=== PATIENT | male | born 1975 | race Caucasian/White ===

== ENCOUNTER 2021-01-03 11:27 | Outpatient (CLI) | payer OTHER | END 2021-01-03 11:28 | disposition home or self-care (01) | LOC: CSHRAD 11:27 | PROVIDERS: ATTEND Family Medicine | DX: M47.816 Spondylosis without myelopathy or radiculopathy, lumbar region (principal) | CPT/HCPCS: 72100 ==

== ENCOUNTER 2022-03-20 10:48 | Emergency (ER) | payer OTHER ==
[2022-03-20] MEDS ORDERED: Triple Antibiotic Oint 1 GM Packet ONE (13:26)
== END 2022-03-20 13:27 | disposition home or self-care (01) ==
LOC: CSHERS 10:48
DX: S61.412A Laceration without foreign body of left hand, initial encounter (principal); K21.9 Gastro-esophageal reflux disease without esophagitis; E78.5 Hyperlipidemia, unspecified; E10.9 Type 1 diabetes mellitus without complications; N40.0 Benign prostatic hyperplasia without lower urinary tract symptoms; F17.220 Nicotine dependence, chewing tobacco, uncomplicated; W26.0XXA Contact with knife, initial encounter
CPT/HCPCS: 12001

== ENCOUNTER 2022-05-05 21:04 | Emergency (ER) | payer OTHER | END 2022-05-05 22:45 | disposition home or self-care (01) | LOC: CSHERS 21:04 | DX: Z76.0 Encounter for issue of repeat prescription (principal); K21.9 Gastro-esophageal reflux disease without esophagitis; E78.5 Hyperlipidemia, unspecified; E10.9 Type 1 diabetes mellitus without complications; N40.0 Benign prostatic hyperplasia without lower urinary tract symptoms; F17.220 Nicotine dependence, chewing tobacco, uncomplicated | CPT/HCPCS: 36416; 99281 ==